=== PATIENT | male | born 1965 | race Caucasian/White ===

== ENCOUNTER 2018-08-10 10:25 | Emergency (ER) | payer OTHER ==
[~2018-08-10] VITALS: Ht 162.6 cm; Wt 61.2 kg
[2018-08-10 10:33] VITALS: BP 107/70
[2018-08-10] MEDS ORDERED: LIALDA1.2 GM ORAL (10:38)
--- NOTE | 2018-08-10 10:40 | NUR ---
ED Nurse Note: Patient presents to ER due to sore throat, 2/10, runny nose (clear drainage) and right earache with slight dizziness x 1 day. Ambulated to room with steady gait. Reports no cough, chills or fever. Able to open mouth, no changes in voice noted. Clear breaths sounds in all lung bunch noted. No facial grimacin or guarding noted. Placed in chair.
[2018-08-10] MEDS ORDERED: TAMIFLU75 MG ORAL (10:52)
[2018-08-10] MEDS ORDERED: LIDOCAINE VISC100 ML ORAL (10:52)
[2018-08-10] MEDS ORDERED: NASONEX17 GM NASAL (10:52)
--- NOTE | 2018-08-10 11:09 | Emergency Room Report ---
History of Present Illness General Chief Complaint: Sore Throat Source: Patient Present Illness HPI Patient is a 53-year-old male who presented after increased generalized weakness and sore throat and nasal congestion. Patient had prior history of ulcerative colitis. He denies any fever. He reports of increased generalized body aches as well as increased sore throat. He reports taking medications for ulcerative colitis but denies any current bleeding. He denies any vomiting or abdominal pain. Allergies: Coded Allergies: No Known Allergies (Unverified , 08/10/18) Patient History Past Medical History: see triage record Reviewed Nursing Documentation: PMH: Agreed; PSxH: Agreed Nursing Documentation-PM Past Medical History: No History, Except For Hx Gastrointestinal Problems: Yes - Ulcerative colitis Review of Systems All Other Systems: negative except mentioned in HPI Physical Exam Vital Signs Date Time Temp Pulse Resp B/P (MAP) Pulse Ox O2 Delivery O2 Flow Rate FiO2 08/10/18 10:33 98.2 70 14 107/70 98 Room Air General Appearance: well appearing, no apparent distress, alert, GCS 15 Head: normocephalic, atraumatic ENT: hearing grossly normal, normal voice Neck: full range of motion, supple Respiratory: normal inspection, lungs clear, no respiratory distress, speaking full sentences Gastrointestinal: normal inspection, normal bowel sounds, non tender, soft Musculoskeletal: normal inspection Neurologic: normal inspection, alert, oriented x3, responsive, normal gait Psychiatric: mood/affect normal Skin: no rash Medical Decision Making Diagnostic Impression: Primary Impression: Viral respiratory infection ER Course .Patient presented for cough and congestion. Differential diagnosis include was not limited to viral respiratory infection, seasonal allergies, bronchitis, strep pharyngitis among others. Patient has a benign exam and does not appear to require any further imaging or laboratory testing at this time patient has appeared what appears to be an influenza sore throat. Patient will be given empiric treatment for Tamiflu. Patient was advised to follow-up with his primary care physician for recheck. He is given prescription for nasal steroids due to request for chronic seasonal allergies but was advised not to use this until symptoms had improved Last Vital Signs Date Time Temp Pulse Resp B/P (MAP) Pulse Ox O2 Delivery O2 Flow Rate FiO2 08/10/18 10:33 98.2 70 14 107/70 98 Room Air Status: improved Disposition: HOME, SELF-CARE Condition: Stable Scripts Lidocaine HCl 2% Viscous (Lidocaine HCl 2% Viscous) 100 Ml Solution 15 ML ORAL QID, #120 ML Prov: Channing Yeung MD 08/10/18 Oseltamivir Phosphate (Tamiflu) 75 Mg Capsule 75 MG ORAL TWICE A DAY, #10 CAP Prov: Channing Yeung MD 08/10/18 Mometasone Furoate (NASONEX) 17 Gm Varna.pump 2 SPRAYS NASAL DAILY, #17 GM 0 Refills Prov: Channing Yeung MD 08/10/18 Patient Instructions: Viral Respiratory Infection Channing Yeung MD Aug 10, 2018 11:09
[2018-08-10 11:19] VITALS: BP 107/70
--- NOTE | 2018-08-10 11:20 | NUR ---
ER DISCHARGE NOTE: Patient is cleared to be discharged per ERMD, pt is aox4, on room air, with stable vital signs. pt was given dc and prescription instructions, pt was able to verbalize understanding, pt id band removed. pt is able to ambulate with steady gait. pt took all belongings.
== END 2018-08-10 11:20 | disposition home or self-care (01) ==
LOC: EMR 11:15
DX: J06.9 Acute upper respiratory infection, unspecified (principal)
CPT/HCPCS: 86710; 99283